=== PATIENT | female | born 1985 | race American Indian/Alaskan Native ===

== ENCOUNTER 2016-05-21 18:28 | Outpatient (CLI) | payer MEDICAID ==
[2016-05-21] MEDS ORDERED: LACTATED RINGERS 1,000 ML ONE (19:06)
[2016-05-21] MEDS ORDERED: LACTATED RINGERS 1,000 ML IV ONE (19:08)
[2016-05-21 20:08] VITALS: BP 106/65
[2016-05-21 20:14] LABS: Bacteria,Urine 1+ /HPF (Negative); Bilirubin,Urine NEG (Negative); Blood,Urine NEG (Negative); Ketones,Urine NEG (Negative); Leukocyte Esterase,Urine NEG (Negative); Mucus,Urine 1+ /HPF; Nitrite,Urine NEG (Negative); Protein,Urine <15 mg/dL mg/dL (Negative); Urobilinogen,Urine < 2.0 mg/dL (<2.0)
== END 2016-05-21 20:52 | disposition home or self-care (01) ==
LOC: TRG 18:28
PROVIDERS: ATTEND Obstetrics & Gynecology
DX: O47.03 False labor before 37 completed weeks of gestation, third trimester (principal); Z3A.31 31 weeks gestation of pregnancy
CPT/HCPCS: 59025; 81001; 96360; 96361; J7120

== ENCOUNTER 2017-11-18 09:01 | Emergency (ER) | payer MEDICAID ==
[2017-11-18 09:20] VITALS: BP 109/67
[2017-11-18] MEDS ORDERED: MORPHINE IV ONE (09:55)
[2017-11-18] MEDS ORDERED: ZOFRAN IV ONE (09:55)
--- NOTE | 2017-11-18 10:00 | Emergency Department Report ---
HPI - General Chief Complaint: Abdominal Pain Time Seen by Provider: 11/18/17 09:47 - HPI HPI: Room 32 The patient is a 32-year-old female presenting with a chief complaint of abdominal pain. The patient states her symptoms began last night with nausea without vomiting and then right-sided abdominal cramping. Patient states the cramping is now diffuse. Patient states her cramping is intermittent in nature. The patient denies diarrhea or vomiting. Patient denies sick contacts. Patient is uncertain if she's had a fever but admits to chills. Patient denies dysuria or hematuria but states she's had white vaginal discharge since last week. The patient gives her pain a score of 8/10 Location: Abdomen Duration: Intermittent since last night Quality: Cramping Severity: 8/10 Modifying factors: [see above] Context: [see above] Mode of transportation: [not driving] ED Past Medical Hx - Surgical History Additional Surgical History: C/section 2003 - Family History Family history: no significant - Social History Smoking Status: Never Smoker Substance Use Type: None (denies illicit drug use), Alcohol (occasional) - Medications Home Medications: Home Medications Medication Instructions Recorded Confirmed Last Taken Type Ibuprofen [Motrin 800 MG tab] 800 mg PO Q8HR PRN #20 tablet 11/18/17 Unknown Rx Metoclopramide [Reglan] 10 mg PO TID #30 tab 11/18/17 Unknown Rx Ondansetron [Zofran ODT TAB] 8 mg PO Q8HR #20 tab.rapdis 11/18/17 Unknown Rx ED Review of Systems ROS: Stated complaint: FOOD POISONING Other details as noted in HPI Constitutional: chills, fever (?) Eyes: denies: eye pain ENT: denies: throat pain Respiratory: no symptoms reported Cardiovascular: denies: chest pain Endocrine: no symptoms reported Gastrointestinal: abdominal pain, nausea. denies: vomiting, diarrhea Genitourinary: discharge. denies: dysuria, hematuria Musculoskeletal: denies: back pain Neurological: denies: headache Physical Exam - Physical Exam Vital Signs: Vital Signs 11/18/17 09:13 Temperature 98.7 F Pulse Rate 101 H Respiratory 18 Rate Blood Pressure 109/67 O2 Sat by Pulse 100 Oximetry Physical Exam: GENERAL: The patient is well-developed well-nourished female kneeling on stretcher appearing to be in mild discomfort HEENT: Normocephalic. Atraumatic. Extraocular motions are intact. Patient has moist mucous membranes. NECK: Supple. Trachea midline CHEST/LUNGS: Clear to auscultation. There is no respiratory distress noted. HEART/CARDIOVASCULAR: Regular. There is no tachycardia. There is no gallop rub or murmur. ABDOMEN: Abdomen is soft, with tenderness to palpation in bilateral upper quadrants and right lower quadrant. There is no rebound or guarding. Patient has normal bowel sounds. There is no abdominal distention. SKIN: There is no rash. There is no edema. There is no diaphoresis. NEURO: The patient is awake, alert, and oriented. The patient is cooperative. The patient has normal speech MUSCULOSKELETAL: There is no CVA tenderness. There is no evidence of acute injury. PELVIC: Small to moderate amount of white thick discharge in vault ED Course Vital Signs 11/18/17 09:13 Temperature 98.7 F Pulse Rate 101 H Respiratory 18 Rate Blood Pressure 109/67 O2 Sat by Pulse 100 Oximetry ED Medical Decision Making - Lab Data Result diagrams: 11/18/17 09:46 11/18/17 09:46 Laboratory Tests 11/18/17 11/18/17 11/18/17 09:46 09:46 10:12 WBC 8.2 RBC 4.76 Hgb 14.1 Hct 42.3 MCV 89 MCH 30 MCHC 33 RDW 13.8 Plt Count 325 Add Manual Diff Complete Total Counted 100 Seg Neutrophils % Compliance Associate Seg Neuts % (Manual) 87.0 H Band Neutrophils % 1.0 Lymphocytes % (Manual) 7.0 L Reactive Lymphs % (Man) 0 Monocytes % (Manual) 4.0 Eosinophils % (Manual) 1.0 Basophils % (Manual) 0 Metamyelocytes % 0 Myelocytes % 0 Promyelocytes % 0 Blast Cells % 0 Nucleated RBC % Not Reportable Seg Neutrophils # Man 7.1 Band Neutrophils # 0.1 Lymphocytes # (Manual) 0.6 L Abs React Lymphs (Man) 0.0 Monocytes # (Manual) 0.3 Eosinophils # (Manual) 0.1 Basophils # (Manual) 0.0 Metamyelocytes # 0.0 Myelocytes # 0.0 Promyelocytes # 0.0 Blast Cells # 0.0 WBC Morphology Not Reportable Hypersegmented Neuts Not Reportable Hyposegmented Neuts Not Reportable Hypogranular Neuts Not Reportable Smudge Cells Not Reportable Toxic Granulation Not Reportable Toxic Vacuolation Not Reportable Dohle Bodies Not Reportable Pelger-Huet Anomaly Not Reportable Oswaldo Rods Not Reportable Platelet Estimate Consistent w auto Clumped Platelets Not Reportable Plt Clumps, EDTA Not Reportable Large Platelets Not Reportable Giant Platelets Not Reportable Platelet Satelliting Not Reportable Plt Morphology Comment Not Reportable RBC Morphology Not Reportable Dimorphic RBCs Not Reportable Polychromasia Not Reportable Hypochromasia Not Reportable Poikilocytosis Not Reportable Anisocytosis Not Reportable Microcytosis Not Reportable Macrocytosis Not Reportable Spherocytes Not Reportable Pappenheimer Bodies Not Reportable Sickle Cells Not Reportable Target Cells Not Reportable Tear Drop Cells Not Reportable Ovalocytes Not Reportable Helmet Cells Not Reportable [place] Bodies Not Reportable [place] Rings Not Reportable Orestes Cells Not Reportable Bite Cells Not Reportable Crenated Cell Not Reportable Elliptocytes Not Reportable Acanthocytes (Spur) Not Reportable Rouleaux Not Reportable Hemoglobin C Crystals Not Reportable Schistocytes Not Reportable Malaria parasites Not Reportable Marc Bodies Not Reportable Hem Pathologist Commnt No Sodium 138 Potassium 4.2 Chloride 102.3 Carbon Dioxide 24 Anion Gap 16 BUN 12 Creatinine 0.7 Estimated GFR > 60 BUN/Creatinine Ratio 17 Glucose 88 Calcium 9.3 Total Bilirubin 0.80 AST 14 ALT 8 Alkaline Phosphatase 77 Total Protein 7.7 Albumin 4.7 Albumin/Globulin Ratio 1.6 Lipase 34 HCG, Qual Urine Color Urine Turbidity Urine pH Ur Specific Wheeler Urine Protein Urine Glucose (UA) Urine Ketones Urine Blood Urine Nitrite Urine Bilirubin Urine Urobilinogen Ur Leukocyte Esterase Urine WBC (Auto) Urine RBC (Auto) U Epithel Cells (Auto) Urine Mucus 11/18/17 11/18/17 10:12 10:30 WBC RBC Hgb Hct MCV MCH MCHC RDW Plt Count Add Manual Diff Total Counted Seg Neutrophils % Seg Neuts % (Manual) Band Neutrophils % Lymphocytes % (Manual) Reactive Lymphs % (Man) Monocytes % (Manual) Eosinophils % (Manual) Basophils % (Manual) Metamyelocytes % Myelocytes % Promyelocytes % Blast Cells % Nucleated RBC % Seg Neutrophils # Man Band Neutrophils # Lymphocytes # (Manual) Abs React Lymphs (Man) Monocytes # (Manual) Eosinophils # (Manual) Basophils # (Manual) Metamyelocytes # Myelocytes # Promyelocytes # Blast Cells # WBC Morphology Hypersegmented Neuts Hyposegmented Neuts Hypogranular Neuts Smudge Cells Toxic Granulation Toxic Vacuolation Dohle Bodies Pelger-Huet Anomaly Oswaldo Rods Platelet Estimate Clumped Platelets Plt Clumps, EDTA Large Platelets Giant Platelets Platelet Satelliting Plt Morphology Comment RBC Morphology Dimorphic RBCs Polychromasia Hypochromasia Poikilocytosis Anisocytosis Microcytosis Macrocytosis Spherocytes Pappenheimer Bodies Sickle Cells Target Cells Tear Drop Cells Ovalocytes Helmet Cells [place] Bodies [place] Rings [place] Cells Bite Cells Crenated Cell Elliptocytes Acanthocytes (Spur) Rouleaux Hemoglobin C Crystals Schistocytes Malaria parasites Marc Bodies Hem Pathologist Commnt Sodium Potassium Chloride Carbon Dioxide Anion Gap BUN Creatinine Estimated GFR BUN/Creatinine Ratio Glucose Calcium Total Bilirubin AST ALT Alkaline Phosphatase Total Protein Albumin Albumin/Globulin Ratio Lipase HCG, Qual Negative Urine Color Yellow Urine Turbidity Clear Urine pH 7.0 Ur Specific Wheeler 1.020 Urine Protein <15 mg/dl Urine Glucose (UA) Neg Urine Ketones Neg Urine Blood Neg Urine Nitrite Neg Urine Bilirubin Neg Urine Urobilinogen < 2.0 Ur Leukocyte Esterase Tr Urine WBC (Auto) 2.0 Urine RBC (Auto) 3.0 U Epithel Cells (Auto) 3.0 Urine Mucus Few - Radiology Data Radiology results: report reviewed (CT abdomen and pelvis), image reviewed (CT abdomen and pelvis) [facility] [address] [place] [address] Cat Scan Report Signed Patient: FRAN CHINO MR#: [id number] : 1985 Acct:[id number] Age/Sex: 32 / F ADM Date: 11/18/17 Loc: ED Attending Dr: Ordering Physician: VIVIANA STEINER MD Date of Service: 11/18/17 Procedure(s): CT abdomen pelvis w con Accession Number(s): [id number] cc: VIVIANA STEINER MD CT abdomen and pelvis with contrast: Following injection of IV contrast transverse images were obtained from lower chest to the ischium. Coronal and sagittal 2-D reformatted images included. The visualized lung bases are normal. A small cyst in the right lobe of the liver but otherwise the liver, spleen, pancreas, and gallbladder are all unremarkable. There is an 11 mm right renal cyst the kidneys are otherwise unremarkable. The noncontrasted proximal loops of small bowel appear normal. There is mild fluid-filled distention of the distal ileum as well as the proximal colon. No evidence of wall thickening nor inflammatory change. The short appendix is visualized and appears normal. Images of the pelvis demonstrate unremarkable reproductive organs. No free fluid noted. The abdominal aorta and its branches are unremarkable. Impressions: Nonspecific fluid-filled and slightly dilated distal ileum and proximal colon. Transcribed By: YELENA Dictated By: KRISTI VELARDE MD Electronically Authenticated By: KRISTI VELARDE MD Signed Date/Time: 11/18/17 1134 DD/ TD/TT: 113 - Differential Diagnosis acute gastritis, partial small bowel obstruction, vaginitis, bacterial vagi Critical care attestation.: If time is entered above; I have spent that time in minutes in the direct care of this critically ill patient, excluding procedure time. ED Disposition Clinical Impression: Acute abdominal pain Disposition: TO HOME OR SELFCARE Is pt being admited?: No Does the pt Need Aspirin: No Condition: Stable Instructions: Abdominal Pain (ED) Additional Instructions: Return to the emergency department immediately should you develop worsening symptoms, fever, inability to tolerate food or liquid or any other concerns. Prescriptions: Ibuprofen [Motrin 800 MG tab] 800 mg PO Q8HR PRN #20 tablet PRN Reason: Pain, Moderate (4-6) Metoclopramide [Reglan] 10 mg PO TID #30 tab Ondansetron [Zofran ODT TAB] 8 mg PO Q8HR #20 tab.rapdis Referrals: JERONIMO SNOWDEN MD [Primary Care Provider] - 3-5 Days FRANSISCO JOLLY MD [Staff Physician] - 3-5 Days (Dr. Jolly is a band tacker. Please follow up with him for further evaluation) Time of Disposition: 12:06
[2017-11-18 10:30] LABS: Hematocrit 42.3 % (30.3-42.9); Hemoglobin 14.1 gm/dl (10.1-14.3); Mean Corpuscular HGB Conc 33 % (30-34); Mean Corpuscular Hemoglobin 30 pg (28-32); Mean Corpuscular Volume 89 fl (79-97); Platelet Count 325 K/mm3 (140-440); Red Blood Count 4.76 M/mm3 (3.65-5.03); Red Cell Distribution Width 13.8 % (13.2-15.2)
[2017-11-18 10:46] LABS: Alanine Aminotransferase 8 units/L (7-56); Albumin 4.7 g/dL (3.9-5); BUN/Creatinine Ratio 17; Blood Urea Nitrogen 12 mg/dL (7-17); Calcium 9.3 mg/dL (8.4-10.2); Hemolysis Index 2
[2017-11-18 11:34] LABS: Bilirubin,Urine NEG (Negative); Blood,Urine NEG (Negative); Color,Urine Yellow (Yellow); Mucus,Urine FEW /HPF; Protein,Urine <15 mg/dL mg/dL (Negative); Urobilinogen,Urine < 2.0 mg/dL (<2.0)
[2017-11-18 11:52] LABS: Band Neutrophils # (Manual) 0.1 K/mm3; Basophils % (Manual) 0 % (0.0-1.8); Total Cells Counted 100
[2017-11-18 11:53] LABS: Platelet Estimate Consistent w Auto
--- NOTE | 2017-11-18 11:53 | Cat Scan Report ---
CT abdomen and pelvis with contrast: Following injection of IV contrast transverse images were obtained from lower chest to the ischium. Coronal and sagittal 2-D reformatted images included. The visualized lung bases are normal. A small cyst in the right lobe of the liver but otherwise the liver, spleen, pancreas, and gallbladder are all unremarkable. There is an 11 mm right renal cyst the kidneys are otherwise unremarkable. The noncontrasted proximal loops of small bowel appear normal. There is mild fluid-filled distention of the distal ileum as well as the proximal colon. No evidence of wall thickening nor inflammatory change. The short appendix is visualized and appears normal. Images of the pelvis demonstrate unremarkable reproductive organs. No free fluid noted. The abdominal aorta and its branches are unremarkable. Impressions: Nonspecific fluid-filled and slightly dilated distal ileum and proximal colon.
== END 2017-11-18 12:26 | disposition home or self-care (01) ==
LOC: ED 09:01
DX: R10.12 Left upper quadrant pain (principal); R10.11 Right upper quadrant pain; R10.31 Right lower quadrant pain
CPT/HCPCS: 36415; 74177; 80053; 81001; 83690; 84703; 85007; 85025; 87210; 87591; 96374; 96375; 99284; J2270; J2405; Q9967